=== PATIENT | male | born 1970 | race Caucasian/White ===

== ENCOUNTER 2018-01-29 11:51 | Outpatient (CLI) | payer OTHER ==
[~2018-01-29] VITALS: Ht 175.3 cm; Wt 97.7 kg
--- NOTE | ~2018-01-29 | OP ---
PATIENT NAME: MILES GONCALVES MEDICAL RECORD: [id number] :72 LOCATION:D.CAT ADMISSION DATE: SURGEON: TEGAN ARGUELLO MD DATE OF OPERATION: 01/29/2018 DATE OF SERVICE: 01/29/2018 PROCEDURES: 1. Left heart catheterization. 2. Selective coronary angiography. 3. Left ventriculogram. INDICATION: Chest pain compatible with angina. PROCEDURE IN DETAIL: After informed consent was obtained and after detailed description of risks, benefits as well as alternative therapies, the patient elected to proceed with angiogram and heart catheterization. The right radial area was prepped and draped in normal sterile fashion. Right radial artery was cannulated via modified Seldinger technique with placement of 5-Bermudian sheath. All catheters exchanged through this sheath. FINDINGS: The left ventriculogram was performed in standard 30-degree RAMOS view reveals good wall motion throughout all segments. Overall ejection fraction is 60%. SELECTIVE CORONARY ANGIOGRAPHY: 1. Left main is with no significant angiographic disease. 2. Left main, left anterior descending, left circumflex, right coronary artery are all smooth-walled vessels with no angiographic evidence of coronary artery disease. OVERALL IMPRESSION: 1. No angiographic evidence of coronary artery disease. 2. Normal left heart pressures. 3. Normal left ventricular systolic function. Chest pain is secondary to out of control hypertension. Center medical management on treatment of the hypertension. TRANSINT:[id number] Voice Confirmation ID: [id number] DOCUMENT ID: [id number] TEGAN ARGUELLO MD at 1834 CC: [id number] DICTATION DATE: 01/29/18 1335 COMMUNICATIONS LEAD: 01/29/18 1414 DEP CLI 01/29/[address] [address]
--- NOTE | ~2018-01-29 | HEMODYNAMI ---
PATIENT:MILES GONCALVES MEDICAL RECORD: [id number] : 72 LOCATION:DMaliaCAT ADMISSION DATE: 01/29/18 Generatedon:01/29/201813:33 Patient name: MILES GONCALVES Patient #: [id number] SSN: : 1970 Date of study: 01/29/2018 Page: Of Hemodynamic Procedure Report Patient Data Patient Demographics Procedure consent was obtained First Name: MILES Gender: Male Last Name: SACHA : 1970 Patient #: [id number] Age: 47 year(s) Race: Unknown Additional ID: [id number] Contact details Address: [address] [place] [address] State: [place] City: [facility] [place] code: [address] Past Medical History Allergies: No known allergies Admission Admission Data Admission Date: 01/29/2018 Admission Time: 11:51 Procedure Procedure Types Cath Procedure Diagnostic Procedure LHC LHC w/Coronaries Procedure Description Procedure Date Procedure Date: 01/29/2018 Procedure Start Time: 13:23 Procedure End Time: 13:33 Procedure Staff Name Function Joe Rodriguez MD Performing Physician Lacie Mejia RT Monitor Uzma Constantino RN Nurse Asaf Perdomo RT Scrub Juan Hanson RT Cabinet And Trim Installer Procedure Data Cath Procedure Fluoroscopy Diagnostic fluoroscopy Total fluoroscopy Time: 2.4 time: 2.4 min min Diagnostic fluoroscopy Total fluoroscopy dose: 304 dose: 304 mGy mGy Contrast Material Contrast Material Type Amount (ml) Isovue 300 69 Entry Location Entry Primary Successful Side Size Upsize Upsize Entry Closure Navarro ccessful Closure Location (Fr) 1 (Fr) 2 (Fr) Remarks Device Remarks Radial Right 6 Fr Mechanical artery Short Compression Estimated blood loss: 5 ml Diagnostic catheters Device Type Used For End Catheter Placement DIAGNOSTIC Tobias 110cm 5 LV Angiography Fr catheter ([id number]) DIAGNOSTIC Tobias 110cm 5 Left Coronary Fr catheter (107558) Angiography DIAGNOSTIC Tobias 110cm 5 Right Coronary Fr catheter ([id number]) Angiography DIAGNOSTIC AR 2 MOD 5 Fr Right Coronary catheter ([id number]) Angiography Procedure Complications No complications Procedure Medications Medication Administration Route Dosage Oxygen etCO2 Nasal cannula 2 l/min Lidocaine 2% added to field 20 Heparin Flush Bag added to field 2 bags (1000units/500ml NS) 0.9% NaCl I.V. ml/hr Versed I.V. 1 mg Fentanyl I.V. 50 mcg Radial Cocktail I.A. 1 syringe (Verapomil 2mg/Nitro 400mcg/Heparin 1500units) Versed I.V. 1 mg Fentanyl I.V. 50 mcg Hemodynamics Rest Heart Rate: 62 (bpm) Snapshots Pre Cath Intra NCS Post Cath Vital Signs Time Heart Resp SPO2 etCO2 NIBP (mmHg) Rhythm Pain Sedation Rate (ipm) (%) (mmHg) Status Level (bpm) 13:13:50 61 17 100 33.1 181/118(145) NSR 0 (11) 10(A) , No pain 13:18:30 60 13 100 36.9 179/111(132) NSR 0 (11) 10(A) , No pain 13:23:07 60 12 96 36.9 175/114(130) NSR 0 (11) 10(A) , No pain 13:27:37 72 15 94 33.1 150/98(118) NSR 0 (11) 9(A) , No pain 13:32:01 68 16 96 39 153/99(125) NSR 0 (11) 10(A) , No pain Medications Time Medication Route Dose Verified Delivered Reason Notes Effectiveness by by 13:16:59 Oxygen etCO2 2 l/min Joe Gusman used for Nasal Jennifer Constantino RN procedure cannula 13:17:09 Lidocaine 2% added 20ml Joe Diaz for local to vial Jennifer Rodriguez MD anesthetic field 13:17:15 Heparin Flush added 2 bags Joe Diaz used for Bag to Jennifer Rodriguez MD procedure (1000units/500ml field NS) 13:17:24 0.9% NaCl I.V. ml/hr Joe Gusman Per Jennifer Constantino RN physician 13:22:35 Versed I.V. 1 mg Joe Gusman for sedation Jennifer Constantino RN 13:22:41 Fentanyl I.V. 50 mcg Joe Gusman for sedation Jennifer Constantino RN 13:24:13 Radial Cocktail I.A. 1 Joe Diaz for (Verapomil syringe Jennifer Rodriguez MD vasodilation 2mg/Nitro 400mcg/Heparin 1500units) 13:25:00 Versed I.V. 1 mg Joe Gusman for sedation Jennifer Constantino RN 13:25:05 Fentanyl I.V. 50 mcg Joe Gusman for sedation Jennifer Constantino RN Procedure Log Time Note 12:52:43 Time tracking: Regular hours (M-F 7:00 - 5:00) 12:52:47 Plan of Care:Hemodynamics will remain stable., Cardiac rhythm will remain stable., Comfort level will be maintained., Respiratory function will remain adequate., Patient/ family verbilizes understanding of procedure., Procedure tolerated without complication., Recovers from procedure without complications.. 12:53:08 Juan Hanson RT(R) sent for patient. Start room use. 12:58:03 Patient received from ED to CCL 3 Alert and oriented. Tansferred to table in Supine position. 12:58:06 Warm blankets applied, and cassie hugger turned on for patient comfort. 12:58:07 Correct patient and procedure confirmed by team. 12:58:08 Signed procedure consent form obtained from patient. 12:58:09 ECG and BP/O2 sat monitors applied to patient. 12:58:09 Full Disclosure recording started 13:00:05 H&P Date Dictated: 01/29/2018 Within 30 days and on chart., ER History on chart.. 13:00:07 Pre-procedure instructions explained to patient. 13:00:07 Pre-op teaching completed and patient verbalized understanding. 13:00:10 Family unavailable. 13:00:14 Patient NPO since Breakfast. 13:00:25 Patient allergic to No known allergies 13:00:28 Is the patient allergic to Iodine/contrast media? No. 13:00:45 Is patient on blood thinner?Yes 13:00:48 ACC The patient was administered the following blood thiners within the last 24 hours: ACCPlavix 13:00:55 Patient diabetic? No. 13:00:58 Previous problem with sedation/anesthesia? No ? 13:01:00 Snore? Yes 13:01:01 Sleep apnea? No 13:01:03 Deviated septum? No 13:01:03 Opens mouth fully? Yes 13:01:04 Sticks out tongue? Yes 13:01:06 Airway obstruction? No ? 13:01:09 Dentures? No ? 13:01:12 Pre procedure: right dorsailis pedis pulse 2+ Normal; easily identifiable; not easily obliterated 13:01:14 Patient pain scale 0/10 ?. 13:01:23 IV patent on arrival in left forearm with 0.9% NaCl at [facility]. 13:01:27 Lab results completed and on chart. 13:12:25 Vital chart was started 13:12:31 Rhythm: sinus rhythm 13:12:43 Right Radial & Right Groin area was prepped with chlora-prep and draped in sterile fashion 13:12:44 Alarms reviewed by R. N. 13:12:44 Sharps counted by scrub and verified by R.N. 13:12:48 Use device set Radial Dx or PCI 13:12:49 ACIST Syringe (89521) opened to sterile field. 13:12:49 Medline Cath Pack ([id number]) opened to sterile field. 13:12:50 Bag Decanter (2002S) opened to sterile field. 13:12:53 DIAGNOSTIC WIRE .035 260cm J wire (556562) opened to sterile field. 13:12:54 ACIST Hand Control (78001) opened to sterile field. 13:12:55 ACIST Manifold (35867) opened to sterile field. 13:12:56 Tegaderm 4 x 4 (1626W) opened to sterile field. 13:12:57 MBrace Wrist Support ([id number]) opened to sterile field. 13:12:58 SHEATH 6Fr Prelude Radial ([id number]) opened to sterile field. 13:15:25 Baseline sample Acquired. 13:16:59 Oxygen 2 l/min etCO2 Nasal cannula was administered by Uzma Constantino RN; used for procedure; 13:17:09 Lidocaine 2% 20ml vial added to field was administered by Joe Rodriguez MD; for local anesthetic; 13:17:15 Heparin Flush Bag (1000units/500ml NS) 2 bags added to field was administered by Joe Rodriguez MD; used for procedure; 13:17:24 0.9% NaCl ml/hr I.V. was administered by Uzma Constantino RN; Per physician; 13:19:30 Physician paged 13:19:58 Zero performed for pressure channel P1 13::23 Final Timeout: patient, procedure, and site verified with staff and physician. All members of the team are in agreement. 13:: Right Radial site verified by team. 13::29 Physical assessment completed. ASA score P 2 - A patient with mild systemic disease as per Joe Rodriguez MD. 13:21:34 Sedation plan: IV Moderate Sedation Medication:Versed, Fentanyl 13::35 Versed 1 mg I.V. was administered by Uzma Constantino RN; for sedation; 13::41 Fentanyl 50 mcg I.V. was administered by Uzma Constantino RN; for sedation; 13::57 Procedure started. 13:23:01 Local anesthetic to right radial artery with Lidocaine 2% by Joe Rodriguez MD.INITIAL ACCESS ONLY 13:23:39 A 6 Fr Short sheath was inserted into the Right Radial artery 13:24:13 Radial Cocktail (Verapomil 2mg/Nitro 400mcg/Heparin 1500units) 1 syringe I.A. was administered by Joe Rodriguez MD; for vasodilation; 13:24:38 A DIAGNOSTIC Tobias 110cm 5 Fr catheter (045698) was advanced over the wire and used for LV Angiography. 13:25:00 Versed 1 mg I.V. was administered by Uzma Constantino RN; for sedation; 13:25:05 Fentanyl 50 mcg I.V. was administered by Uzma Constantino RN; for sedation; 13:25:45 LV gram done using RAMOS 13:25:53 EF : 60 % 13::57 Injector settings: Ml/sec: 5, Volume: 15, 13:26:26 A DIAGNOSTIC Tobias 110cm 5 Fr catheter (292711) was advanced over the wire and used for Left Coronary Angiography. 13:28:13 A DIAGNOSTIC Tobias 110cm 5 Fr catheter ([id number]) was advanced over the wire and used for Right Coronary Angiography. unable to cannulate rca 13:28:16 Catheter removed. 13:28:49 A DIAGNOSTIC AR 2 MOD 5 Fr catheter ([id number]) was advanced over the wire and used for Right Coronary Angiography. 13:29:17 Catheter removed. 13:29:28 Sheath removed intact; hemostasis achieved with Mechanical Compression to the Right Radial artery. 13:29:29 Procedure ended.(Physican Out) 13:29:54 Fluoroscopy time 02.40 minutes. 13:29:59 Fluoroscopy dose: 304 mGy 13:29:59 Flurop Dose total: 304 13:30:02 Contrast amount:Isovue 300 69ml. 13:30:34 Sharps counted by scrub and verified by R.N. 13:30:37 TR band inflated with 13cc of air. 13:30:39 Insertion/operative site no bleeding no hematoma. 13:30:42 TR BAND Standard ([id number]) opened to sterile field. 13:30:53 Post right radial artery:stable, clean and dry 13:30:55 Post Procedure Pulses reassessed and unchanged 13:30:57 Post-procedure physical assessment completed. ASA score P 2 - A patient with mild systemic disease as per Joe Rodriguez MD. 13:30:59 Post procedure rhythm: unchanged. 13:31:02 Estimated blood loss: 5 ml 13:31:03 Post procedure instruction explained to patient.Patient verbalizes understanding. 13:31:04 Patient needs reinforcement of post procedure teaching. 13:31:06 Procedure and supply charges have been captured, reviewed, submitted and are correct. 13:31:10 Procedure Complication : No complications 13:31:12 See physician's report for complete and final results. 13:32:41 Vital chart was stopped 13:32:43 Report given to Pre/Post Procedure Room. 13:32:46 Patient transfered to Pre/Post Procedure Room with Stretcher. 13:33:04 Procedure ended. 13:33:04 Full Disclosure recording stopped 13:33:13 End room use (Document Last) Device Usage Item Name Manufacture Quantity Catalog Number Hospital Part Current M inimal Lot# / Charge Number Stock Stock Serial# Code ACIST Syringe Acist 1 90518 030728 094516 230441 2 0 (00113) [employer] Medline Cath Cardinal 1 [id number] 12850 331219 5 Pack Health ([id number]) Bag Decanter Microtek 1 195557 24428 605641 5 () Medical Inc. DIAGNOSTIC WIRE St Power 1 029552 025580 429720 662449 3 0 .035 260cm J wire (922379) ACIST Hand Acist 1 66133 435264 002436 286602 5 Control (47879) Medical Systems Inc ACIST Manifold Acist 1 96299 864981 720212 333476 5 (95875) [employer] Systems Inc Tegaderm 4 x 4 3M 1 1626W 274117 343729 933707 5 (1626W) MBrace Wrist Advanced 1 140-0250-00 881915 82305 473710 5 Support Vascular ([id number]) Dynamics SHEATH 6Fr Merit 1 [id number] 756996 806272 252374 5 Prelude Radial Medical ([id number]) DIAGNOSTIC Terumo 1 40-7473 353226 464337 206058 5 Tobias 110cm 5 Fr catheter (361009) DIAGNOSTIC AR 2 Cardinal 1 [id number] 088639 732704 396750 2 0 MOD 5 Fr Health catheter (174252E) TR BAND Terumo 1 [id number] 155861 166247 791363 4 0 Standard ([id number]) Signature Audit [place] Stage Time Signature Unsigned Intra-Procedure 01/29/2018 Lacie 1:33:25 PM Counts RT(R) Signatures Monitor : Lacie Signature : Counts RT Date : Time : [address] [place] [address]
--- NOTE | ~2018-01-29 | CN ---
PATIENT NAME:MILES NIEVES MEDICAL RECORD: [id number] : 72 LOCATION:D.CAT ADMIT DATE: ACCOUNT: [id number] CONSULTING PHYSICIAN: TEGAN ARGUELLO MD REFERRING PHYSICIAN: TEGAN ARGUELLO MD DATE OF CONSULTATION: 01/29/2018 CARDIOLOGY CONSULT DIAGNOSES: 1. Chest pain compatible with angina. 2. Previous CVA. 3. Hypertension. 4. Smoking history. 5. Family history of coronary disease. HISTORY: Mr. Nieves had sudden onset of chest pressure, very compatible with angina, dull aching, band-like tightness across his anterior chest, radiation to his jaw and down his arms. He had multiple hours of this. It was relieved with multiple sublingual nitros here in the Emergency Room. His EKG is with nonspecific ST-T abnormalities, but no acute ST elevation. He has not had a history of ischemic heart disease. He did have CVA last year. PHYSICAL EXAMINATION: GENERAL APPEARANCE: Well-nourished, well-developed, appears stated age. Level of distress, comfortable. PSYCHIATRIC: Mental status, alert, normal affect. Orientation, oriented to time, place and person. EYES: Lids and conjunctiva, noninjected. No discharge, no pallor. ENT: Lips, teeth, gums, normal dentition. Oropharynx, no cyanosis, no pallor. NECK: Carotid arteries, bilateral normal upstroke, no bruits, no thrills. JUGULAR VEINS: No jugular venous pressure or distention. CERVICAL LYMPH NODES: Nontender, nonenlarged. THYROID: Not enlarged. Nontender. No nodules. LUNGS: Respiratory effort, unlabored. CHEST: Normal curvature. No thoracic deformity. No chest wall tenderness. Percussion, resonant. Auscultation, clear. No wheezes, no rales, no rhonchi. CARDIOVASCULAR: Precordial exam, nondisplaced. No heaves or pericardial thrills. Rate and rhythm, regular. Heart sounds, normal S1, normal S2. No S3, no gallop, no rub. Systolic murmur, not heard. Diastolic murmur, not heard. EXTREMITIES: No cyanosis, no edema. Peripheral pulses, full and equal in all extremities, except as noted. No bruits appreciated. ABDOMEN: Soft, nondistended. Normal aorta. No bruit. Nontender. No masses. Liver, nontender, no hepatomegaly. Spleen, nontender, no splenomegaly. MUSCULOSKELETAL: No joint tenderness. No joint swelling. No erythema. NEUROLOGICAL: Normal gait, normal strength, normal tone. SKIN: Warm and dry. OVERALL IMPRESSION: Chest pain compatible with angina in an unstable fashion. We will proceed with coronary angiography. Further care depends upon the findings of the angiography. TRANSINT:[id number] Voice Confirmation ID: [id number] DOCUMENT ID: [id number] CONSULT REPORT [id number] MILES NIEVES JEFFREY MD at 1834 CC: [id number] DICTATION DATE: 01/29/18 1213 ORDNANCE EQUIPMENT WORKER: 01/29/18 1229 DEP CLI 01/29/18 [address] [id number] [place] [address]
[2018-01-29 11:52] VITALS: Ht 175.3 cm; Wt 97.7 kg
[2018-01-29 12:34] LABS: BASOPHILS 0.6 % (0-2); HEMATOCRIT 41.7 % (42.0-54.0); HEMOGLOBIN 14.6 g/dL (13.5-17.5); IMMATURE GRANULOCYTES 0.3 % (0-5); LYMPHOCYTES 23.7 % (15-50); MCH 29.7 pg (26.0-34.0); MCV 84.9 fL (80.0-100.0); MEAN PLATELET VOLUME 10.3 fL (7.4-10.4); MONOCYTES 5.5 % (2-11); NEUTROPHILS 67.9 % (40-80); PLATELET COUNT 288 10x3/uL (130-400); RBC 4.91 10x6/uL (4.20-6.10); WBC 8.6 10x3/uL (4.8-10.8)
[2018-01-29 12:50] LABS: ALBUMIN 3.4 g/dL (3.4-5.0); ALKALINE PHOSPHATASE 57 U/L (46-116); ALT (SGPT) 35 U/L (10-68); BILIRUBIN - TOTAL 0.31 mg/dL (0.2-1.3); CALC OSMOLALITY 275 mosm/kg (275-300); CALCIUM 8.5 mg/dL (8.5-10.1); CHLORIDE - SERUM 106 mmol/L (98-107); CREATININE - SERUM 0.9 mg/dL (0.6-1.3); GLUCOSE 94 mg/dL (74-106); SODIUM 138 mmol/L (136-145); UREA NITROGEN 13 mg/dL (7-18); eGFR NON AFRICAN AMERICAN > 90 mL/min (90-120)
[2018-01-29 13:02] LABS: CKMB 1.2 U/L (0.0-3.6); CREATINE KINASE 51 UL (21-232); LIPASE 128 U/L (73-393); PRO BNP 266 pg/mL (0-125)
[2018-01-29 13:10] LABS: TROPONIN-I < 0.017 ng/mL (0.000-0.060)
[2018-01-29 13:11] VITALS: BP 156/89
[2018-01-29] MEDS ORDERED: PRINZIDE 20-251 TA1 PO (14:34)
[2018-01-29] MEDS ORDERED: ACETAMINOPHEN500 M1 PO (14:34)
[2018-01-29] MEDS ORDERED: IBUPROFEN400 MG PO (14:35)
[2018-01-29] MEDS ORDERED: ALEVE220 MG PO (14:35)
[2018-01-29] MEDS ORDERED: TENORMIN50 MG PO (14:36)
[2018-01-29] MEDS ORDERED: NORVASC10 MG PO (14:39)
== END 2018-01-29 15:45 | disposition home or self-care (01) ==
LOC: D.ER 11:51 → D.CATH 11:51 → EDSTATUS 12:43 → D.CATH 15:45
PROVIDERS: Family Medicine
DX: R07.9 Chest pain, unspecified (principal); I16.1 Hypertensive emergency